=== PATIENT | female | born 1975 | race Two or more races ===

== ENCOUNTER 2018-10-02 04:03 | Emergency (ER) | payer OTHER ==
[~2018-10-02] VITALS: Ht 157.5 cm; Wt 54.4 kg
[2018-10-02] MEDS ORDERED: ZOLOFT100 MG (04:12)
== END 2018-10-02 05:09 | disposition home or self-care (01) ==
LOC: ER 04:03
DX: R51 Headache (principal)

== ENCOUNTER 2018-10-03 12:00 | Emergency (ER) | payer OTHER ==
[~2018-10-03] VITALS: Ht 157.5 cm; Wt 54.4 kg
[~2018-10-03 12:00] MED LIST: ZOLOFT100 MG
== END 2018-10-03 20:38 | disposition home or self-care (01) ==
LOC: ER 12:00
DX: D25.1 Intramural leiomyoma of uterus (principal); K57.30 Diverticulosis of large intestine without perforation or abscess without bleeding; K52.89 Other specified noninfective gastroenteritis and colitis; R10.2 Pelvic and perineal pain

== ENCOUNTER 2022-12-19 05:20 | Day surgery (SDC) | payer OTHER ==
[~2022-12-19] VITALS: Ht 157.5 cm; Wt 48.1 kg
== END 2022-12-19 14:20 | disposition home or self-care (01) ==
LOC: CIR.AMB 05:20
PROVIDERS: ATTEND Obstetrics & Gynecology
DX: N93.8 Other specified abnormal uterine and vaginal bleeding (principal); N84.0 Polyp of corpus uteri; Z88.5 Allergy status to narcotic agent

== ENCOUNTER 2023-12-11 05:20 | Day surgery (SDC) | payer OTHER ==
[~2023-12-11] VITALS: Ht 157.5 cm; Wt 50.8 kg
[2023-12-11] MEDS ORDERED: POVIDONE-IODINE 118 ML BOTT TOP ONE (06:51)
[2023-12-11] MEDS ORDERED: POVIDONE-IODINE 118 ML BOTT TOP SCH (07:45)
[2023-12-11] MEDS ORDERED: ONDANSETRON HCL 2 MG/ML VIAL IV ONE (08:00)
[2023-12-11] MEDS ORDERED: KETOROLAC TROMETHAMINE 30 MG VIAL IV ONE (08:00)
[2023-12-11] MEDS ORDERED: ONDANSETRON HCL 2 MG/ML VIAL ONE (08:33)
[2023-12-11] MEDS ORDERED: KETOROLAC TROMETHAMINE 30 MG VIAL ONE (08:33)
== END 2023-12-11 14:10 | disposition home or self-care (01) ==
LOC: CIR.AMB 05:20
PROVIDERS: ATTEND Obstetrics & Gynecology
DX: N84.0 Polyp of corpus uteri (principal); N93.8 Other specified abnormal uterine and vaginal bleeding; Z88.6 Allergy status to analgesic agent; Z20.822 Contact with and (suspected) exposure to COVID-19